=== PATIENT | female | born 1970 | race Caucasian/White ===

== ENCOUNTER 2016-03-28 08:47 | Emergency (ER) | payer BC, OTHER ==
[~2016-03-28] VITALS: Ht 154.9 cm; Wt 95.2 kg
[~2016-03-28 08:47] MED LIST: ALBU1AER9 INH; CLR10 PO; HYDR-3419 PO; SERT25TA PO
[2016-03-28 08:50] VITALS: TEMP 36.5; Ht 154.9 cm; Wt 95.2 kg
[2016-03-28] MEDS ORDERED: OXYCODONE/ACETAMINOPHEN 5-325 TAB PO ONE (09:15)
[2016-03-28] MEDS ORDERED: MULT-897 PO (09:16)
--- NOTE | 2016-03-28 09:16 | EMERGENCY ROOM VISIT NOTE ---
History First contact with patient: 08:49 Chief Complaint: FALL Stated Complaint: FALL/ANKLE PAIN History of Present Illness The patient is a 46 year old female who presents to the Emergency Room with complaints of right ankle pain and fall. The patient states she was on her way to work on [facility] [employer] when she slipped and fell, injuring her right ankle. The patient complains of pain diffusely over the ankle. She is not able to bear weight. She rates her discomfort a 15/10. She also reports pain in the foot. She denies any other injury. She denies any previous injury to the ankle. Review of Systems A 10 system review of systems was completed with positives and pertinent negatives listed in the HPI. Past Medical/Surgical History Medical Problems: (1) Asthma Social History Smoking Status: Never Smoker Alcohol Use: occasionally Drug Use: none Marital Status: Housing Status: lives with family Current/Historical Medications Scheduled Multiple Vitamin (One Daily), 1 TAB PO DAILY Sertraline (Zoloft), 25 MG PO HS Scheduled PRN Albuterol (Proair Hfa), 1-2 PUFFS INH BID PRN for SOB/Wheezing Hydrocodon/Acetaminophen 5MG/300MG (Vicodin (5MG/300MG)), 1 TAB PO Q4H PRN for Pain Loratadine (Claritin), 10 MG PO DAILY PRN for PRN Oxycodone/Acetaminophen 5MG/325MG (Percocet 5MG/325MG), 1 TAB PO Q4H PRN for Pain Allergies Coded Allergies: Codeine (Verified Allergy, Intermediate, HIVES, 03/28/16) Doxycycline (Verified Allergy, Intermediate, HIVES, 03/28/16) Morphine (Verified Allergy, Mild, RASH, 03/28/16) Sulfa Antibiotics (Verified Allergy, Unknown, UNKNOWN, 03/28/16) Tetracyclines (Verified Allergy, Unknown, HIVES, 03/28/16) Physical Exam Vital Signs Date Time Temp Pulse Resp B/P Pulse Ox O2 Delivery O2 Flow Rate FiO2 03/28/16 10:48 64 16 127/84 97 03/28/16 10:17 64 16 127/84 97 Room Air 03/28/16 08:50 36.5 76 16 112/75 96 Room Air Physical Exam VITALS: Vitals are noted on the nurse's note and reviewed by myself. Vital signs stable. GENERAL: This is a 46-year-old female, in no acute distress, nondiaphoretic, well-developed well-nourished. SKIN: There is ecchymosis and edema to the right ankle, particularly over the lateral malleolus. There are no open areas. There is no tenting of the skin. Capillary reflex less than 2 seconds. HEAD: Normocephalic atraumatic. EARS: The external ears are normal in appearance. EYES: Pupils equal round and reactive to light and accommodation. Conjunctivae without injection, sclerae without icterus. Extraocular movements intact. NOSE: Patent, turbinates without inflammation or discharge. MOUTH: Mucous membranes moist. Tonsils are not enlarged. Pharynx without erythema or exudate. Uvula midline. Airway patent. Tongue does not deviate. NECK: Supple without nuchal rigidity. No JVD. MUSCULOSKELETAL: There is marked erythema and edema to the right ankle, particularly over the right lateral malleolus. There are no open areas. There is decreased range of motion at the right ankle but the patient is able to plantar and dorsiflex. There is no tenderness over the proximal fibula. There is mild tenderness to palpation over the right fifth metatarsal. NEURO: Patient was alert and oriented to person place and time. Normal sensation to light and sharp touch. No focal neurological deficits. Medical Decision & Procedures ER Provider Diagnostic Interpretation: RIGHT ANKLE MIN 3 VIEWS ROUTINE CLINICAL HISTORY: Right ankle pain status post trauma COMPARISON: None DISCUSSION: There is lateral soft tissue swelling. There are corticated densities adjacent to the distal fibula. These are felt to be old. There is a subtle nondisplaced fracture the distal fibular tip. There is an age-indeterminate avulsion arising from the lateral aspect of the talus. IMPRESSION: Nondisplaced fracture of the distal fibular tip. [~ rep ct add3]] RIGHT FOOT MIN 3 VIEWS ROUTINE CLINICAL HISTORY: Right foot pain following fall. COMPARISON: None FINDINGS: The tarsometatarsal joints are intact. No acute fracture within the right foot is present. IMPRESSION: No acute fracture or dislocation of the right foot. Medications Administered Medications (Trade) Dose Ordered Sig/Cathy Route Start Time Stop Time Status Last Admin Dose Admin Oxycodone/ Acetaminophen (Percocet 5-325MG Tab) 1 tab NOW ONCE PO 03/28/16 09:15 03/28/16 09:16 DC 03/28/16 09:16 1 TAB Ondansetron HCl (Zofran Odt) 4 mg ONE ONCE PO 03/28/16 10:15 03/28/16 10:16 DC 03/28/16 10:17 4 MG ED Course The patient was seen and examined. Imaging was obtained as above. The patient has a nondisplaced distal fibula fracture. She was placed in an Ortho-Glass posterior leg splint and given crutches. She was given Percocet. She should contact orthopedics to schedule a follow-up appointment for further evaluation and management. She should return with any worsening symptoms. Medical Decision Differential diagnosis includes ankle sprain, strain, fracture, among others [place] Drug Monitoring Program Search Results: patient reviewed within database, no issues identified Impression Primary Impression: Closed fracture of right distal fibula Departure Information Dispostion Home / Self-Care Condition GOOD Prescriptions Oxycodone/Acetaminophen 5MG/325MG (PERCOCET 5MG/325MG) Tab 1 TAB PO Q4H Y for Pain, #18 TAB For Initial Treatment Prov: Magali Nagy, ANA-C 03/28/16 Referrals Leno Hall M.D.([facility]) (PCP) Merlin Gabriel M.D. Patient Instructions Fractures - [facility], [facility] Additional Instructions Ice frequently over the next 24-48 hours Ibuprofen 600 mg every 6-8 hours for moderate pain Percocet 1-2 tablet every 4-6 hours as needed for worse pain. No driving or alcohol use with Percocet and do not take with Tylenol. Wear the splint until seen by orthopedics; do not get the splint wet Crutches with no weightbearing on the right leg Contact orthopedics today to schedule a follow-up appointment for further evaluation and management Return with any worsening symptoms Work Instructions Additional Work Instructions: Until cleared by orthopedics Problem Qualifiers Primary Impression: Closed fracture of right distal fibula Encounter type: initial encounter Fracture morphology: other fracture Qualified Codes: S82.831A - Other fracture of upper and lower end of right fibula, initial encounter for closed fracture
--- NOTE | 2016-03-28 09:51 | DIAGNOSTIC IMAGING REPORT ---
RIGHT ANKLE MIN 3 VIEWS ROUTINE CLINICAL HISTORY: Right ankle pain status post trauma COMPARISON: None DISCUSSION: There is lateral soft tissue swelling. There are corticated densities adjacent to the distal fibula. These are felt to be old. There is a subtle nondisplaced fracture the distal fibular tip. There is an age-indeterminate avulsion arising from the lateral aspect of the talus. IMPRESSION: Nondisplaced fracture of the distal fibular tip. Electronically signed by: Yogi Shearer M.D. 03/28/2016 9:49 AM Dictated Date/Time: 03/28/2016 9:47 AM
--- NOTE | 2016-03-28 09:52 | DIAGNOSTIC IMAGING REPORT ---
RIGHT FOOT MIN 3 VIEWS ROUTINE CLINICAL HISTORY: Right foot pain following fall. COMPARISON: None FINDINGS: The tarsometatarsal joints are intact. No acute fracture within the right foot is present. IMPRESSION: No acute fracture or dislocation of the right foot. Electronically signed by: Vito Mccormack M.D. 03/28/2016 9:50 AM Dictated Date/Time: 03/28/2016 9:49 AM
[2016-03-28] MEDS ORDERED: OXYC-57 PO (10:07)
[2016-03-28] MEDS ORDERED: ONDANSETRON 4MG OD TAB PO ONE (10:15)
[2016-03-28 10:48] VITALS: BP 127/84; PULSE 64; O2SAT 97
== END 2016-03-28 10:48 | disposition home or self-care (01) ==
LOC: EDBD 08:47 → C.EDA 08:48
DX: S89.301A Unspecified physeal fracture of lower end of right fibula, initial encounter for closed fracture (principal); W01.0XXA Fall on same level from slipping, tripping and stumbling without subsequent striking against object, initial encounter; Y92.214 College as the place of occurrence of the external cause; J45.909 Unspecified asthma, uncomplicated; Z79.899 Other long term (current) drug therapy; Z88.2 Allergy status to sulfonamides; Z88.5 Allergy status to narcotic agent; Z88.8 Allergy status to other drugs, medicaments and biological substances

== ENCOUNTER → 2016-04-07 | Outpatient (CLI) | payer OTHER, BC ==
[~2016-04-07] MED LIST changes: +MULT-897 PO; +OXYC-57 PO
--- NOTE | 2016-04-07 16:33 | DIAGNOSTIC IMAGING REPORT ---
RIGHT ANKLE MIN 3 VIEWS CLINICAL HISTORY: RIGHT ANKLE PAIN Right COMPARISON STUDY: Right ankle 03/28/2016. FINDINGS: Lateral soft tissue swelling persists. There is no dislocation. The ankle mortise is well-maintained. Best seen on the oblique view there is a tiny linear ossific density which is slightly distracted from the distal tip of the fibula. This is consistent with a small avulsion fracture at the distal tip of the fibula. No significant healing. IMPRESSION: Slightlydistracted tiny avulsion fracture from the distal tip of the fibula. No significant healing. Electronically signed by: Heath Alvarenga M.D. 04/07/2016 4:31 PM Dictated Date/Time: 04/07/2016 4:29 PM
== END | disposition home or self-care (01) ==
LOC: C.RDSM 09:50
PROVIDERS: ATTEND Physical Medicine & Rehabilitation Sports Medicine
DX: R52 Pain, unspecified (principal); S82.831A Other fracture of upper and lower end of right fibula, initial encounter for closed fracture; X58.XXXA Exposure to other specified factors, initial encounter

== ENCOUNTER → 2016-04-28 | Outpatient (CLI) | payer OTHER, BC ==
--- NOTE | 2016-04-28 12:05 | DIAGNOSTIC IMAGING REPORT ---
RIGHT ANKLE MIN 3 VIEWS CLINICAL HISTORY: RIGHT ANKLE PAIN Right pain COMPARISON: 04/07/2016 DISCUSSION: Nondisplaced cortical avulsion of the terminal tip distal fibula is again noted. It shows no major change compared to the prior study. Minimal soft tissue edema persists. Several small additional loose bodies are present. Ankle mortise is aligned anatomically. There is no evidence for soft tissue swelling. IMPRESSION: Tiny avulsion lateral margin tip distal fibula unchanged. Several small additional loose bodies present unchanged as well. Electronically signed by: Bassam Morrissey M.D. 04/28/2016 12:03 PM Dictated Date/Time: 04/28/2016 12:02 PM
== END | disposition home or self-care (01) ==
LOC: C.RDSM 10:39
PROVIDERS: ATTEND Physical Medicine & Rehabilitation Sports Medicine
DX: R52 Pain, unspecified (principal)

== ENCOUNTER → 2016-05-12 | Outpatient (CLI) | payer OTHER, BC ==
--- NOTE | 2016-05-12 10:02 | DIAGNOSTIC IMAGING REPORT ---
RIGHT ANKLE MIN 3 VIEWS CLINICAL HISTORY: RIGHT ANKLE PAIN Right trauma. Pain. COMPARISON: 04/28/2016 DISCUSSION: No change compared to the prior study. Potential nondisplaced cortical fracture tip distal fibula. Several ossific fragments adjacent to the tip of the distal fibula of indeterminate to old age. No new or interval finding. Ankle mortise is aligned anatomically. There is no evidence for soft tissue swelling. IMPRESSION: Unchanged study from the prior exam. Small avulsions adjacent to the tip distal fibula with a nondisplaced cortical incomplete fracture of the fibular shaft Electronically signed by: Bassam Morrissey M.D. 05/12/2016 10:01 AM Dictated Date/Time: 05/12/2016 10:00 AM
== END | disposition home or self-care (01) ==
LOC: C.RDSM 09:28
PROVIDERS: ATTEND Physical Medicine & Rehabilitation Sports Medicine
DX: R52 Pain, unspecified (principal); S82.831A Other fracture of upper and lower end of right fibula, initial encounter for closed fracture; S82.491A Other fracture of shaft of right fibula, initial encounter for closed fracture; X58.XXXA Exposure to other specified factors, initial encounter